=== PATIENT | female | born 1955 | race Caucasian/White ===

== ENCOUNTER 2018-06-29 10:22 | Inpatient (IN) ==
--- NOTE | 2018-06-29 10:50 | PROVIDER DOCUMENTATION ---
This chart was entered by Massiel Rand Scribe, acting as scribe for Varinder Dobbs MD. HPI-Abdominal Pain/GI Problem - General Chief Complaint: Abdominal Pain Stated Complaint: abd pain Time Seen by Provider: 06/29/18 10:29 Source: patient, EMS - History of Present Illness-ABD Nature of Presenting Problems: 62 y/o female presents to the ED with complaint of severe diarrhea, abdominal cramping and distension, and jaundice times three days. The patient gives a history of previous jaundice due to alcohol abuse but is poor historian. Patient states no alcohol times two days but normally drinks half a bottle of wine daily. PCP Dr. Joe Alvarez. Abdominal Pain Onset Location: reports: generalized abdomen Pain Radiation: reports: no radiation Quality of Pain: reports: cramping Onset/Duration: reports: 3 days ago Timing: reports: still present Exposure to sick contacts?: No Modifying Factors: improves with: nothing Associated Symptoms: reports: diarrhea, other (abdominal distension/pain, jaundice). denies: fever/chills, vomiting Rectal Bleeding: reports: none Rectal Pain: reports: none Emesis Description: reports: none Similar Symptoms Previously?: Yes Recently seen or treated by another doctor?: No Review of Systems - Adult - REVIEW OF SYSTEMS - ADULT Constitutional: denies: chills, fever, night sweats Eyes: reports: no symptoms reported Ears, Nose, Mouth & Throat: reports: no symptoms reported Cardiovascular: reports: no symptoms reported Respiratory: reports: no symptoms reported Gastrointestinal: reports: abdominal pain, diarrhea. denies: nausea, vomiting Genitourinary: reports: no symptoms reported Musculoskeletal: reports: no symptoms reported Integumentary: reports: no symptoms reported Neurological: reports: no symptoms reported Psychiatric: reports: alcohol/drug dependence. denies: depression, suicidal thoughts Endocrine: reports: no symptoms reported Hematologic/Lymphatic: reports: no symptoms reported Allergic/Immunologic: reports: no symptoms reported All Other Systems: Reviewed and Negative Past History - Adult - PAST MEDICAL HISTORY-ADULT Review of Records: reports: Old Records Reviewed, Nursing Assessment Review, Medications Reviewed - IMMUNIZATION STATUS Childhood Immunizations: See Nurse Assessment Flu Vaccine: See Nurse Assessment - SOCIAL HISTORY Substance Use: alcohol Alcohol Use Frequency: every day Physical Exam-General - PHYSICAL EXAM-ADULT Initial Vital Signs Reviewed: Yes - CONSTITUTIONAL General Appearance: alert. negative: appears well - EYES Eyes: PERRL/EOMI - HEAD, EARS, NOSE, MOUTH & THROAT HENMT: normocephalic/atraumatic - NECK Neck: full range of motion, supple - SKIN Integumentary: ecchymosis (left eye), jaundice - NEUROLOGIC Neurologic: grossly normal Progress - PLAN OF CARE/RESULTS Result Diagrams: 06/29/18 11:55 06/29/18 11:55 - ULTRASOUND (By Radiology) 1 US Study: Abdomen Impression: Abnormal (EXAM: US GB < RUQ (LIMITED) - 06/29/2018 HISTORY: JAUNDICE TECHNIQUE: Ultrasound gallbladder COMPARISON: None. FINDINGS: The liver contours are lobulated, which can be seen with chronic hepatocellular disease/cirrhosis. There is no focal liver lesion identified. Doppler image shows apparent hepatopedal flow in the portal vein. There is moderate ascites. The gallbladder peraza appear thickened, but this can be seen in the presence of ascites. Multiple small gallbladder polyps. There are no discrete shadowing or mobile gallstones identified. The technologist reports negative sonographic Lynn's sign. The common bile duct is normal caliber at 5 mm. The right kidney is unremarkable. The pancreas is largely obscured by bowel gas artifacts. IMPRESSION: Possible chronic hepatocellular disease/cirrhosis. Moderate ascites. Thickened gallbladder peraza, which can be seen in the presence of ascites. Apparent multiple small gallbladder polyps. No definite gallstones. Normal caliber common bile duct at 5 mm. Electronically signed by Chetan Villegas 06/29/2018 12:09 PM) - CONSULTS/PCP/HOSPITALIST Notification #1 *Consult/PCP/Hospitalist*: Dr. Hicks Time Discussed: 14:01 Reason/Comments: Ascites, jaundice, alcoholic cirrhosis Consult Disposition: Will see in ED Departure - Departure Date of Disposition Decision: 06/29/18 Time of Disposition Decision: 13:14 DIAGNOSIS: Alcoholic cirrhosis of liver with ascites Disposition: HOME 01 Certified Medical Emergency: Emergent Condition: Stable Additional Freetext Instructions: ED Follow Up Instructions: You have been treated by a care provider in the Emergency Department. These instructions are being provided to you so you can have an understanding of how to care for yourself upon discharge. Upon discharge from the Emergency D epartment, you are responsible for making arrangements for follow-up care by a physician of your choice. Take all prescribed medications as directed. Return to the Emergency Department immediately for any new or worsening symptoms. You may call the Physician Referral phone number at [phone] to obtain a list of Physicians who are taking new patients. Referrals and Follow-Ups: Leanna Alvarez MD [Primary Care Provider] - - Critical Care Note This patient required my direct & personal management of CC.: No Attestation - Physician/ JUICE Attestation Patient care was provided by Advanced Practice Provider:: No The physician spent face to face time with patient:: Yes Advanced Practice Provider documentation review:: Supervising physician onsite and consulted in the evaluation and care of this patient. The physician did have a face to face encounter with the patient. This chart was documented by the indicated scribe, (Massiel Rand, Tess) and accurately reflects the services I performed and decisions made by me, Varinder Dobbs MD, as attested by the provider's signature.
[2018-06-29 12:11] LABS: URINE SOURCE CLEAN CATCH
--- NOTE | 2018-06-29 12:11 | Diag Imaging Result Doc PS360 ---
EXAM: US GB < RUQ (LIMITED) - 06/29/2018 HISTORY: JAUNDICE TECHNIQUE: Ultrasound gallbladder COMPARISON: None. FINDINGS: The liver contours are lobulated, which can be seen with chronic hepatocellular disease/cirrhosis. There is no focal liver lesion identified. Doppler image shows apparent hepatopedal flow in the portal vein. There is moderate ascites. The gallbladder peraza appear thickened, but this can be seen in the presence of ascites. Multiple small gallbladder polyps. There are no discrete shadowing or mobile gallstones identified. The technologist reports negative sonographic Lynn's sign. The common bile duct is normal caliber at 5 mm. The right kidney is unremarkable. The pancreas is largely obscured by bowel gas artifacts. IMPRESSION: Possible chronic hepatocellular disease/cirrhosis. Moderate ascites. Thickened gallbladder peraza, which can be seen in the presence of ascites. Apparent multiple small gallbladder polyps. No definite gallstones. Normal caliber common bile duct at 5 mm. Electronically signed by Chetan Villegas 06/29/2018 12:09 PM
[2018-06-29 12:29] LABS: BILIRUBIN URINE MODERATE (NEGATIVE); BLOOD URINE TRACE (NEGATIVE); COLOR YELLOW; GLUCOSE URINE NEGATIVE (NEGATIVE); KETONE URINE TRACE mg/dL (NEGATIVE); LEUKOCYTES URINE SMALL (NEGATIVE); NITRITE URINE NEGATIVE (NEGATIVE); PH URINE 5.5; PROTEIN URINE TRACE mg/dL (NEGATIVE); SP GRAVITY URINE 1.017; TURBIDITY URINE HAZY (CLEAR); UROBILINOGEN URINE 2 mg/dL (NORMAL)
[2018-06-29 12:35] LABS: BASO# 0.04 X1000 (0.0-0.2); BASO% 0.4 % (0.0-0.8); EOS# 0.18 X1000 (0.0-0.7); EOS% 1.9 % (0.0-10.0); HEMOGLOBIN 9.1 g/dL (12.0-16.0); LYMPH# 1.25 X1000 (1.2-3.4); LYMPH% 13.4 % (20.5-51.1); MCH 34.3 PG (27-31); MCHC 32.5 g/dL (33-37); MCV 105.7 FL (81-99); MONO# 1.14 X1000 (0.11-0.59); MONO% 12.2 % (1.7-9.3); MPV 11.2 FL (7.4-10.4); NEUT# 6.73 X1000 (1.4-6.5); NEUT% 72.1 % (42.2-75.2); PLT 260 X1000 (130-400); RBC 2.65 XMIL (4.2-5.4); RDW 18.5 % (11.5-14.5); WBC 9.34 X1000 (4.8-10.8)
[2018-06-29 12:35] LABS: URINE BACTERIA 1+ /HPF; URINE RBC <10 /HPF (<10); URINE WBC <10 /HPF (<10)
[2018-06-29 12:45] LABS: ALB/GLOB RATIO 0.8; ALBUMIN 2.7 g/dL (3.5-5.0); CALCIUM 8.6 mg/dL (8.8-10.2); CREATININE 2.5 mg/dL (0.5-0.9); POTASSIUM 4.7 mmol/L (3.5-5.1); TOTAL BILIRUBIN 9.16 mg/dL (0.20-1.00); TOTAL PROTEIN 6.2 g/dL (6.3-8.3)
[2018-06-29 12:48] LABS: URINE CRYSTALS NONE SEEN; URINE SMALL ROUND CELLS TRANS PRESENT; URINE YEAST NONE SEEN
[2018-06-29 12:58] LABS: UR EPITHELIAL CELLS <10 /HPF (<10)
[2018-06-29] MEDS ORDERED: PHENERGAN IV PRN (14:19)
[2018-06-29] MEDS ORDERED: SODIUM CHLORIDE 0.9% INJ PRN (14:19)
[2018-06-29] MEDS ORDERED: SODIUM CHLORIDE 0.9% INJ ONE (14:19)
[2018-06-29] MEDS ORDERED: PHENERGAN IV ONE (14:19)
--- NOTE | 2018-06-29 15:22 | HISTORY AND PHYSICAL ---
CHIEF COMPLAINT: Abdominal swelling and pain. PRESENT ILLNESS: This is the first [facility] admission for this 62-year-old white female with abdominal pain, abdominal distention, jaundice, and nausea. According to the she has been drinking regularly, at least a half a bottle of wine daily until 2 days ago for the last 6 months. She had some abdominal swelling about a year ago and went to see Dr. Alvarez, who advised her to stop drinking and gave her some Lasix. She improved with time and had stopped for about 6 months. Her mother developed dementia and after being in rehab, her mother returned home with her. She began drinking again due to the stress. She told her that she could not handle the stress without alcohol. She would occasionally go get her alcohol, but he often time also would go get the alcohol to keep her from driving since she was often intoxicated. Laboratory in the emergency room revealed white blood count 9300, hematocrit 28, BUN 33, creatinine 2.5, sodium 132, total bilirubin 9.2, glucose 110, AST 123, ALT 37, alkaline phosphatase 474, ammonia 212, total protein 6.2, albumin 2.7, lipase 154. Urinalysis showed moderate bilirubin and a small amount of leukocytes, less than 10 per high-powered field. Upper abdominal ultrasound was done revealing gallbladder polyps and thickened gallbladder wall which could have been related to the ascites. Common bile duct was not dilated. There was evidence of hepatocellular disease on ultrasound. PRESENT MEDICATIONS: None. ALLERGIES: None known. REVIEW OF SYSTEMS: Alcohol usage as above. Stress contributing to her alcohol problem. SOCIAL HISTORY: She is and lives with her . Her mother now stays with their son who is assisting in her care. There is no history of smoking. PHYSICAL EXAMINATION: VITAL SIGNS: Temperature 98.6 degrees, heart rate 74, respirations 28, blood pressure 120/62, O2 saturation on room air 99%. GENERAL: A well-developed, well-nourished, jaundiced, white female with distended abdomen. HEENT: Pupils equal, round, and reactive to light. She wears glasses. There are icteric sclerae bilaterally. Pharynx benign. NECK: Supple with no mass or lymphadenopathy. HEART: Regular in rate and rhythm with no murmur, rub or gallop. LUNGS: Clear with no rales or rhonchi. ABDOMEN: Distended and tense with no definite mass. Bowel sounds are diminished. EXTREMITIES: No cyanosis, clubbing or edema. RECTAL AND GENITALIA: Deferred. IMPRESSION: Cirrhosis, alcoholic, with jaundice and ascites, malnutrition, elevated serum ammonia, gallbladder polyps, alcoholism. PLAN: Admit for control of nausea, hydration, GI consultation, and probable paracentesis. cc: Phill Hicks MD
[2018-06-29] MEDS ORDERED: DEMEROL IV PRN (15:49)
[2018-06-29] MEDS ORDERED: ROCEPHIN 1 GM in NS 50 ML IV SCH (17:00)
[2018-06-29] MEDS ORDERED: LASIX IV SCH (17:00)
--- NOTE | 2018-06-29 18:58 | Diag Imaging Result Doc PS360 ---
EXAM: CHEST-2 VIEWS - 06/29/2018 HISTORY: r/o pneumonia TECHNIQUE: Chest two views COMPARISON: None. FINDINGS: Heart size is normal. Inspiration is somewhat shallow. Lungs appear clear except for mild basilar subsegmental atelectasis. There is no consolidation, substantial pleural effusion, or pneumothorax identified. IMPRESSION: Somewhat shallow inspiration, with mild basilar atelectasis. No discrete pneumonia. Electronically signed by Chetan Villegas 06/29/2018 6:55 PM
[2018-06-29] MEDS: LIBRIUM PO SCH (20:27)
[2018-06-29] MEDS: ULTRAM PO PRN (20:27)
[2018-06-29] MEDS ORDERED: LACTULOSE PO SCH (21:00)
[2018-06-29 21:52] LABS: INR 1.42; PROTIME 18.4 Seconds (11.0-16.0)
[2018-06-29] MEDS: ALBUMIN 25% IV SCH (23:37)
[2018-06-30 07:45] LABS: ALB/GLOB RATIO 0.9; ALBUMIN 2.7 g/dL (3.5-5.0); CALCIUM 8.2 mg/dL (8.8-10.2); CREATININE 2.3 mg/dL (0.5-0.9); POTASSIUM 4.5 mmol/L (3.5-5.1); TOTAL BILIRUBIN 9.18 mg/dL (0.20-1.00); TOTAL PROTEIN 5.8 g/dL (6.3-8.3)
[2018-06-30] MEDS: LIBRIUM PO SCH ×3 (08:18→23:52)
[2018-06-30] MEDS: ULTRAM PO PRN ×3 (08:18→22:29)
[2018-06-30] MEDS: ALBUMIN 25% IV SCH ×4 (08:19→22:30)
[2018-06-30] MEDS ORDERED: ALDACTONE PO SCH (09:00)
--- NOTE | 2018-06-30 12:12 | PROGRESS NOTE ---
DATE: 06/30/2018 OBJECTIVE: Vital signs: Temperature 98 degrees, heart rate 70, respirations 16, blood pressure 100/62, O2 saturation 99% on room air. LABORATORY DATA: Sodium 134, potassium 4.5, BUN 37, creatinine 2.3, calcium 8.2, total bilirubin 9.2, AST 102, ALT 30, alkaline phosphatase 371, total protein 5.8, albumin 2.7. The patient continues to be weak with abdominal distention. Paracentesis is planned for tomorrow. She was placed on Librium in anticipation of DTs. She is calm at this time. Diet was increased by Dr. Coreas to healthy heart diet. cc: Phill Hicks MD
[2018-06-30] MEDS: ROCEPHIN 1 GM in NS 50 ML IV SCH (16:43)
--- NOTE | 2018-07-01 03:04 | GASTROENTEROLOGY CONSULTATION ---
DATE: 06/30/2018 REASON FOR CONSULTATION: Decompensated alcohol cirrhosis. HISTORY OF PRESENT ILLNESS: Ms. Jayla Roy is a 62-year-old woman with a past medical history significant for decompensated alcohol cirrhosis complicated by ascites, anemia, GERD, depression, and hypertension who presents with 4 days of severe upper and lower abdominal pain, cough with productive white phlegm, nonbloody nonbilious emesis. She admits to gaining about 30 pounds over the last 3 weeks, and over the last week has notice scleral icterus and jaundice. She denies any fevers, chills or sweats. She reports compliance with her home medications. No confusion, rectal bleeding, melena or hematemesis. She has also noticed some generalized weakness, decreased p.o. intake, and lightheadedness. No lower extremity edema. She has been drinking about a 0.5 L of wine daily over the last 20 years, her last drink was 4 days ago. PAST MEDICAL HISTORY: As per HPI. PAST SURGICAL HISTORY: She had a left upper extremity bone tumor removed, tubal ligation. FAMILY HISTORY: Both her father and sister have a history of colorectal cancer. No family history of liver disease. SOCIAL HISTORY: She drinks 0.5 L of wine daily, which she has done for the last 20 years. No smoking or drug use. ALLERGIES: No known allergies. MEDICATIONS: Furosemide, iron, vitamin C, pantoprazole, rifaximin, spironolactone, Carafate, citalopram, bisoprolol-hydrochlorothiazide combination. REVIEW OF SYSTEMS: As per HPI. She does report having some black formed stools in the setting of taking iron, dyspnea on exertion and pulmonary chest pain. The rest of the review of systems was negative other than what I mentioned in the HPI. PHYSICAL EXAMINATION: Vital Signs: Temperature 98 degrees, pulse 76, blood pressure 110/56, respiratory rate 25, O2 saturation 96% on room air. General: The patient is awake, alert and oriented, in no acute distress. HEENT: Sclerae are anicteric. Extraocular motor intact. Oropharynx with jaundice. She has small mouth oral ulcers. Neck: Supple. No JVD or lymphadenopathy. Cardiac: Regular rate and rhythm. No murmurs. Lungs: Clear to auscultation bilaterally. Shallow breathing. Abdomen: Distended, tense with ascites, diffuse tenderness to palpation, voluntary guarding. Extremities: No clubbing, cyanosis or edema. Skin: Scattered spider angiomata on her chest. Jaundice more well-perfused. Neurologic: Cranial nerves II-XII grossly intact. No asterixis. Alert and oriented x3. LABORATORY DATA: White count of 9.3, hemoglobin 9.1, platelet count 206,000. INR of 1.4. Sodium 132, potassium 4.7, chloride of 100, bicarbonate 15, BUN of 33, creatinine 2.5 from unknown baseline, total bilirubin of 9.1, AST of 123, ALT of 37, alkaline phosphatase of 474, ammonia of 212, total protein of 6.2, albumin of 2.7, lipase of 154, lactate of 1.4. UA shows moderate bilirubin, small leukocytes. Blood cultures x2 negative to date. Urine culture shows gram- negative rods. Abdominal ultrasound shows cirrhosis with moderate ascites, thickened gallbladder peraza which can be seen in the presence of ascites, apparent multiple small gallbladder polyps, no definite stones. Common bile duct measures 5 mm. Chest x-ray shows somewhat shallow inspiration with mild basilar atelectasis, no discrete pneumonia. ASSESSMENT AND PLAN: Ms. Jayla Roy is a 62-year-old woman who presents with worsening decompensated alcohol cirrhosis with ascites and alcoholic hepatitis, [*]is high; however, she is not a candidate for steroids at the time given her positive urinary tract infection with gram- negative rods. She is currently on antibiotics with ceftriaxone. She was given albumin challenge given her acute kidney injury. Her home diuretics are being held as well as lactulose and rifaximin given the absence of hepatic encephalopathy. No need to trend ammonia given poor correlation of symptoms. She will need a diagnostic and therapeutic paracentesis to be done by Radiology, this has been ordered. We will start her on Trental. Other notable findings on labs include macrocytic anemia, coagulopathy with international normalized ratio of 1.4, low bicarbonate. We will check iron studies, B12 and folate. She will need to be on alcohol withdrawal protocol, regular high-protein and high-calorie diet in the setting of severe protein calorie malnutrition with alcoholism. Continue to baby counselor her on alcohol cessation. She reports that she does drink as a coping mechanism because she cares for her mother who has dementia. We will follow with you. Please call with any questions or concerns. cc: Phill Hicks MD
[2018-07-01 03:26] LABS: ALB/GLOB RATIO 1.6; ALBUMIN 3.8 g/dL (3.5-5.0); CALCIUM 8.6 mg/dL (8.8-10.2); CREATININE 2.2 mg/dL (0.5-0.9); POTASSIUM 4.2 mmol/L (3.5-5.1); TOTAL BILIRUBIN 8.01 mg/dL (0.20-1.00); TOTAL PROTEIN 6.2 g/dL (6.3-8.3)
[2018-07-01 03:27] LABS: IRON SATURATION 13 %; TIBC 111 ug/dL; TOTAL IRON 14 ug/dL (49-151); UNBOUND IRON 97 ug/dL (112-346)
[2018-07-01] MEDS ORDERED: M.V.I.-12 10 ML, FOLIC ACID 1 MG, MAGNESIUM SULFATE 1 GM, THIAMINE 100 MG in NS 1,000 ML IV SCH (10:00)
[2018-07-01] MEDS: ULTRAM PO PRN ×2 (10:08→15:41)
[2018-07-01] MEDS: TRENTAL PO SCH ×3 (10:09→21:43)
[2018-07-01] MEDS: LIBRIUM PO SCH ×3 (10:09→21:56)
[2018-07-01] MEDS: ALBUMIN 25% IV SCH ×3 (10:10→17:47)
--- NOTE | 2018-07-01 10:12 | Diag Imaging Result Doc PS360 ---
US ABD PARACENTESIS W S/I - 07/01/2018 INDICATION: diagnostic and therapeutic COMPARISON: None FINDINGS: The risks and benefits of the procedure were discussed with the patient. All questions were answered. Written and verbal consent was obtained. Ultrasound scanning demonstrated ascites. Overlying skin was prepped and draped in sterile fashion. Anesthesia was achieved with injection of 10 cc 1% lidocaine. The paracentesis catheter was advanced until the return of ascites fluid. 4.4 L was aspirated. The catheter was withdrawn intact. The patient reported no symptoms from the procedure. IMPRESSION: Successful and uncomplicated ultrasound-guided paracentesis. Electronically signed by Shaheen Doss 07/01/2018 10:10 AM
[2018-07-01] MEDS: CENTRUM SILVER PO SCH (10:15)
[2018-07-01] MEDS: SODIUM CHLORIDE 0.9% INJ SCH (10:16)
[2018-07-01] MEDS: PROTONIX IV SCH ×2 (10:16→21:43)
[2018-07-01] MEDS: VITAMIN K 10 MG in NS 50 ML IV SCH (11:06)
[2018-07-01 11:10] LABS: ALBUMIN BODY FLUID 0.8 g/dL; AMYLASE BODY FLUID 20 U/L; TOTAL PROT BODY FLUID 1.3 g/dL
[2018-07-01 11:49] LABS: BODY FLUID SOURCE PERITONEAL FLUID; WBC BF 35 /cumm
[2018-07-01 11:57] LABS: MONOS 69 %; POLYS 31 %
[2018-07-01 13:36] LABS: HEPATITIS PROFILE ACUTE SEE COMMENTS
--- NOTE | 2018-07-01 13:58 | GASTROENTEROLOGY PROGRESS NOTE ---
DATE: 07/01/2018 SUBJECTIVE: Resting in bed. She is undergoing paracentesis in the ultrasound department patient denies any fevers, rigors, chills. She does complain of some soreness in the abdomen. No guarding. No rebound. She denies any fevers, rigors, chills, any nausea, vomiting, vomiting blood. She is currently undergoing paracentesis.Vital signs: Temperature are 97.9 degrees, pulse of 76, respiratory 20, blood pressure 118/60 saturating 97% on room air. Body weight 141 pounds. 12.8 ounces. BMI 25 kg. General Appearance: Moderately nourished, lying in bed, in no acute distress. HEENT: Pale conjunctivae. Icteric sclerae. Neck: Supple. Abdomen: Softer now. She is undergoing paracentesis no guarding or rebound. Extremities: No cyanosis, clubbing. Neurologic: She is awake, alert, oriented x3. LABS: Hemoglobin and hematocrit is 9.1 and 28, white count of 9.3, platelet count of 260,000 INR 1.42, PT of 18.4 PTT of 33.7. Sodium 130, potassium 4.2, chloride 97, bicarb 30, anion gap 16, BUN of 35, creatinine 2.2 ,glucose of 94, calcium is 8.6. Iron studies show iron saturation of 13%. Ferritin of 47, total bilirubin is 8, AST 107, ALT 23, alkaline phosphatase is 299. Total protein 6.2, albumin of 3.8, B12 more than 2000, folate of 20.8, lipase of 154 lactate 1.4. Urinalysis showing trace ketones and trace blood, moderate bilirubin and trace protein. Blood culture x2 negative at 48 hours. Urine culture showing gram-negative rods. IMPRESSION AND PLAN: 1. Decompensated alcoholic cirrhosis. We will continue with conservative management. The patient is again counseled to quit alcohol completely. We will continue to follow the liver enzymes and PT/INR and CBC. She will continue to avoid hepatotoxic drugs. 2. Ascites. She has been undergoing paracentesis. We will check on the fluid studies. 3. Alcoholic hepatitis. She is not a candidate for steroids as the patient has a positive urinary tract infection with gram-negative rods. 4. Urinary tract infection. She is on antibiotics with ceftriaxone. 5. Renal insufficiency. Continue to watch for now. She is getting albumin per the primary care team. 6. History of hepatic encephalopathy. We will restart the Xifaxan today. 7. Anemia, continue to watch for now. Transfuse as needed. 8. Coagulopathy/ We will give her a dose of vitamin K. 9. Alcoholism. Watch for withdrawal. She will continue on Librium, multivitamin. We will start her on banana bag as well. 10. PPIs. 11. We will continue on pentoxifylline 4 mg p.o. t.i.d. 12. The above plans were discussed with the patient and all questions answered. Please call if you have any questions. cc: MD Phill Acuña MD
[2018-07-01] MEDS: ROCEPHIN 1 GM in NS 50 ML IV SCH (15:22)
[2018-07-01] MEDS: ZOFRAN IV PRN (17:54)
--- NOTE | 2018-07-01 20:56 | PROGRESS NOTE ---
DATE: 07/01/2018 SUBJECT: A 62-year-old white female admitted to the hospital over the weekend with a history of alcohol use developing cirrhosis, ascites. Patient had multiple detox programs failed, she keeps on drinking. is at bedside. Events noted. Appreciate GI consult and patient is well known to Dr. Almonte. REVIEW OF SYSTEMS: Patient is docile, calm. PAST MEDICAL HISTORY: Reviewed. PAST SURGICAL HISTORY: Reviewed. MEDICINES: Reviewed. ALLERGIES: Sulfamide. EXAM: Temperature is 98 degrees, pulse is 82, blood pressure 112/58, 96% on room air.HEENT: Pale, jaundiced. Neck: Supple. Chest: Clear. Heart: Sounds are regular. Belly: Soft. Ascites noted. No signs of peritonitis. No neurological deficits or asterixis noted. INVESTIGATIONS: CBC, white cell count 9.3, hematocrit 28, MCV 105, platelet count 260,000. PT 14 INR 1.42. SMA 7 sodium 130, potassium 4.2, chloride 97, BUN 35, creatinine 2.2, calcium 8.6 and total bilirubin 8.0 and alkaline phosphate, LFTs were high, B12, folic acid normal. Urinalysis positive for infection. Hepatitis panel is negative for hepatitis B and hepatitis C and fluid white cell count 35, fluid albumin 1.3, serum albumin 3.8 and SAAG is more than 3, total protein is less than 2.5. Microbiology cultures, blood cultures are negative. Urine cultures Enterobacter. Paracentesis of ultrasound 4.4 L fluid was aspirated. Ultrasound of the abdomen cirrhosis with moderate ascites. Chest x-ray, shallow inspiration, no acute disease. ASSESSMENT AND PLAN: 1. Alcohol cirrhosis with ascites, portal hypertension decompensated with jaundice, SAAG is 3, protein level less than 2.5. No subacute bacterial peritonitis noted. 2. Urinary tract infection with Enterobacter, intravenous ceftriaxone. 3. Renal failure possibly hepatorenal syndrome. 4. Continue GI prophylaxis with IV Protonix. Multivitamins as directed and alcohol withdrawals impending DTs on Librium 25 t.i.d. and continue on Xifaxan for the ammonia encephalopathy. 5. Coagulopathy on intravenous vitamin K and tramadol for p.r.n. pain. Discussed the plan of care with at bedside. 6. Patient has started on pentoxifylline and probably poor prognosis if she continues to drink. Continue to detox . LEVEL OF DOCUMENTATION: 35 minutes. cc: MD Phill Montoya MD MTDD
[2018-07-01] MEDS: XIFAXAN PO SCH (21:56)
[2018-07-02] MEDS: M.V.I.-12 10 ML, FOLIC ACID 1 MG, MAGNESIUM SULFATE 1 GM, THIAMINE 100 MG in NS 1,000 ML IV SCH ×2 (03:01→22:22)
[2018-07-02 07:28] LABS: BASO# 0.06 X1000 (0.0-0.2); BASO% 0.8 % (0.0-0.8); EOS# 0.09 X1000 (0.0-0.7); EOS% 1.1 % (0.0-10.0); HEMATOCRIT 24.5 % (37.0-47.0); HEMOGLOBIN 7.8 g/dL (12.0-16.0); IMM GRAN# 0.02 X1000 (0.0-0.04); IMM GRAN% 0.3 % (0.0-0.5); LYMPH# 1.02 X1000 (1.2-3.4); LYMPH% 12.9 % (20.5-51.1); MCH 33.3 PG (27-31); MCHC 31.8 g/dL (33-37); MCV 104.7 FL (81-99); MONO# 1.02 X1000 (0.11-0.59); MONO% 12.9 % (1.7-9.3); MPV 10.2 FL (7.4-10.4); NEUT# 5.71 X1000 (1.4-6.5); PLT 187 X1000 (130-400); RBC 2.34 XMIL (4.2-5.4); RDW 17.6 % (11.5-14.5); WBC 7.92 X1000 (4.8-10.8)
[2018-07-02 07:29] LABS: INR 1.68
[2018-07-02 07:51] LABS: ALB/GLOB RATIO 1.9; ALBUMIN 3.8 g/dL (3.5-5.0); CALCIUM 8.4 mg/dL (8.8-10.2); POTASSIUM 4.3 mmol/L (3.5-5.1); TOTAL BILIRUBIN 7.15 mg/dL (0.20-1.00); TOTAL PROTEIN 5.8 g/dL (6.3-8.3)
[2018-07-02] MEDS: VITAMIN K 10 MG in NS 50 ML IV SCH (08:53)
[2018-07-02] MEDS: CENTRUM SILVER PO SCH (08:53)
[2018-07-02] MEDS: TRENTAL PO SCH ×3 (08:53→22:23)
[2018-07-02] MEDS: LIBRIUM PO SCH ×2 (08:53→14:40)
[2018-07-02] MEDS: PROTONIX IV SCH ×2 (08:53→22:23)
[2018-07-02] MEDS: SODIUM CHLORIDE 0.9% INJ SCH ×2 (08:53→22:23)
[2018-07-02] MEDS: XIFAXAN PO SCH ×2 (08:53→22:23)
[2018-07-02] MEDS: ROCEPHIN 1 GM in NS 50 ML IV SCH (14:40)
[2018-07-02] MEDS: NS 250 ML IV SCH (16:39)
--- NOTE | 2018-07-02 21:16 | PROGRESS NOTE ---
DATE: 07/02/2018 SUBJECT: The patient is not eating well and slightly sedated, is at bedside. Appreciated GI consult and interval history was reviewed. OBJECTIVE: Temperature is 98 degrees, pulse 83, blood pressure 103/37. Slightly pale, jaundiced.Chest: Is clear. Heart: Sounds are regular. Belly: Is soft. Decreased distention. No signs of peritonitis. No edema. INVESTIGATIONS: CBC. White cell count 7.9, hematocrit 24, platelets 187,000. PT 21, INR 1.68. SMA 7 sodium 136, potassium 4.3, BUN 30, creatinine 2.0, calcium 8.4. LFTs were coming down. ASSESSMENT AND PLAN: 1. Cirrhosis of liver due to alcohol with portal hypertension and ascites. No subacute bacterial peritonitis noted. 2. Anemia and chronic kidney failure and will give a transfusion of 1 unit of packed RBC and follow up on daily labs. 3. Coagulopathy. Continue vitamin K. 4. To prevent ammonia encephalopathy, continue on Xifaxan. 5. Delirium tremens prophylaxis with Librium and continue on IV Protonix. 6. Urinary tract infection on intravenous ceftriaxone and will continue to monitor with present regimen. LEVEL OF DOCUMENTATION: 25 minutes. cc: MD Phill Montoya MD MTDD
[2018-07-03] MEDS: LIBRIUM PO SCH ×4 (01:43→16:54)
[2018-07-03] MEDS: NS 250 ML IV SCH (07:11)
[2018-07-03 07:50] LABS: BASO# 0.09 X1000 (0.0-0.2); BASO% 1.1 % (0.0-0.8); EOS# 0.19 X1000 (0.0-0.7); EOS% 2.3 % (0.0-10.0); HEMATOCRIT 31.3 % (37.0-47.0); HEMOGLOBIN 10.1 g/dL (12.0-16.0); IMM GRAN# 0.03 X1000 (0.0-0.04); IMM GRAN% 0.4 % (0.0-0.5); LYMPH# 0.87 X1000 (1.2-3.4); LYMPH% 10.5 % (20.5-51.1); MCH 32.3 PG (27-31); MCHC 32.3 g/dL (33-37); MONO# 0.86 X1000 (0.11-0.59); MONO% 10.4 % (1.7-9.3); MPV 10.8 FL (7.4-10.4); NEUT# 6.26 X1000 (1.4-6.5); NEUT% 75.3 % (42.2-75.2); PLT 168 X1000 (130-400); RBC 3.13 XMIL (4.2-5.4); RDW 21.9 % (11.5-14.5)
[2018-07-03 09:16] LABS: ALB/GLOB RATIO 1.5; ALBUMIN 3.6 g/dL (3.5-5.0); CALCIUM 8.7 mg/dL (8.8-10.2); CREATININE 1.8 mg/dL (0.5-0.9); POTASSIUM 4.3 mmol/L (3.5-5.1); TOTAL BILIRUBIN 7.55 mg/dL (0.20-1.00)
[2018-07-03] MEDS: PROTONIX IV SCH ×2 (09:27→21:54)
[2018-07-03] MEDS: XIFAXAN PO SCH ×2 (09:28→21:54)
[2018-07-03] MEDS: LACTULOSE PO SCH ×2 (09:28→21:54)
[2018-07-03] MEDS: CENTRUM SILVER PO SCH (09:28)
[2018-07-03] MEDS: TRENTAL PO SCH ×3 (09:28→21:55)
[2018-07-03] MEDS: SODIUM CHLORIDE 0.9% INJ SCH ×2 (09:28→21:54)
[2018-07-03] MEDS: ICAR-C PO SCH (09:28)
[2018-07-03] MEDS: VITAMIN K 10 MG in NS 50 ML IV SCH (09:29)
--- NOTE | 2018-07-03 10:24 | PROVIDER PROGRESS NOTE ---
Progress Note SUBJECTIVE: Confused overnight. No N/V/F, CP, SOB, abdominal pain, rectal bleeding, melena. at bedside OBJECTIVE Last Vital Signs Temp 97.5 F L 07/03/18 07:41 Pulse 79 07/03/18 07:41 Resp 16 07/03/18 07:41 BP 127/61 07/03/18 07:41 Pulse Ox 93 L 07/03/18 07:41 Height 5 ft 2 in Weight 132 lb 3 oz LABS: General: awake, NAD, confused HEENT: Sclerae are anicteric. Extraocular motor intact. MMM. Neck: Supple. No JVD or lymphadenopathy. Cardiac: Regular rate and rhythm. No murmurs. Lungs: Clear to auscultation bilaterally. No wheezing. Abdomen: distended, NT, ascites present, BS present. Extremities: No clubbing, cyanosis or edema. Skin: Scattered spider angiomata on her chest. Jaundice, WWP Neurologic: Cranial nerves II-XII grossly intact. Moving all extremities. Asterixis present. Alert and oriented to self and year only. 07/03/18 07/03/18 07:05 07:05 WBC 8.30 Hgb 10.1 L D MCV 100.0 H Plt Count 168 Sodium 139 Potassium 4.3 Chloride 108 H Carbon Dioxide 15 L BUN 26 H Creatinine 1.8 H Glucose 121 H Total Bilirubin 7.55 H AST 77 H ALT 21 Alkaline Phosphatase 288 H Total Protein 6.0 L UC on admission with Enterbacter cloacoe A/P: Ms. Jayla Roy is a 62-year-old woman who presents with worsening decompensated alcohol cirrhosis with ascites and alcoholic hepatitis, discriminant function is high; however, she is not a candidate for steroids at the time given UTI. She is currently on antibiotics with ceftriaxone. SCAR improved with albumin; therefore no HRS. LFTs improving. She has worsening hepatic encephalopathy. On rifixamin, started on lactulose today. #Decompensated ETOH cirrhosis - Ascites: s/p LVP with removal of 4.4L on 07/01, holding diuretics in setting of SCAR; low Na diet as tolerated - EV: patient had EGD without varices within the last year - PSE: present; on rifaximin; continue 30mL lactulose BID, titrated for 3-4 BMs daily, hold next dose for >4 BMs - HCC: imaging negative for hepatoma, repeat US every 6 months - OLT: not a candidate given recent ETOH use #Alcoholic hepatitis: on trental TID, continue for total of 28 days, will need high protein calorie diet when more alert, continue thiamine, folate, MVI, treat if has signs of alcohol w/d #UTI: on CTX; will recheck UCx #Anemia: macrocytic: s/p 1 unit pRBC yesterday; overcorrected to 10.1 today; B12/folate WNL; borderline RYDER; on iron therapy - continue PPI; transfuse as needed to maintain hgb 7-8; DO NOT OVERTRANSFUSE as this could precipitate variceal bleed #Severe protein calorie malnutrition: nutrition following; apprec recs #SCAR: improving; renally dose meds; no HRS #Low bicarbonate: question 2/2 to renal failure vs GI losses; lactate WNL #Coagulopathy: 2/2 to cirrhosis; s/p vitamin K IV without improvement Findings and plans discussed with patient's family. Will follow with you.
[2018-07-03] MEDS: ROCEPHIN 1 GM in NS 50 ML IV SCH (15:23)
--- NOTE | 2018-07-03 20:49 | PROGRESS NOTE ---
DATE: 07/03/2018 SUBJECTIVE: The patient did receive 1 unit of packed RBCs, receiving banana bag. The patient appears to be calm, docile. No signs of delirium or withdrawals from alcohol noted. Abdomen is distended. Still jaundiced, not eating well. EXAMINATION: Vital Signs: Temperature 97.3, heart rate is 109, blood pressure 126/49. Jaundiced, pale. Chest: Clear. Heart: Sounds are regular. Abdomen: Belly is soft. Ascites noted. No peripheral edema. LABS: CBC: White cell count 8.3, hematocrit 31, MCV 100, platelet 168,000. Sodium 139, potassium 4.3, chloride 108, BUN 26, creatinine 1.8, bilirubin 7.5. LFTs were coming down. ASSESSMENT AND PLAN: 1. Alcohol cirrhosis with ascites. Watch the trend of the LFTs. 2. Portal hypertension and probably needs nadolol at some point when she gets tachycardic. 3. Anemia. We will follow up on Hemoccult stools. Status post 1 unit of packed RBCs. 4. Watch for impending DTs. Continue on Librium. Will also initiate at some point naltrexone down the line. 5. GI prophylaxis with IV Protonix. 6. Coagulopathy, on vitamin K daily. 7. Ammonia encephalopathy, on Zyvox and started on lactulose. 8. UTI with enterococci on IV ceftriaxone. 9. Kidney failure due to hepatorenal syndrome, stable. Continue to monitor on a daily basis, will closely monitor. LEVEL OF DOCUMENTATION: 35 minutes. cc: MD Phill Montoya MD
[2018-07-03] MEDS: M.V.I.-12 10 ML, FOLIC ACID 1 MG, MAGNESIUM SULFATE 1 GM, THIAMINE 100 MG in NS 1,000 ML IV SCH (21:55)
[2018-07-03] MEDS: ULTRAM PO PRN (21:59)
[2018-07-04] MEDS: ULTRAM PO PRN ×2 (04:37→21:47)
[2018-07-04 05:10] LABS: ALLEN TEST YES; BE -7.9 mmoll (-3.0-3.0); BLOOD TYPE ARTERIAL; HCO3-(ACT) 18.7 mmoll (20.0-26.0); METHB 0.5 % (0.0-1.5); O2(CT) 13.9 mL/dL (15.0-23.0); O2HB 95.5 % (95.0-99.0); PCO2(98.6) 27 mmHg (35-45); PO2(98.6) 78 mmHg (60-100); SAMPLE BLOOD; SAO2 98.6 % (95.0-100.0); THB 10.3 g/dL (11.5-17.4); pH(98.6) 7.38 (7.35-7.45)
[2018-07-04 05:11] LABS: MODALITY ROOM AIR
[2018-07-04 07:55] LABS: BASO# 0.14 X1000 (0.0-0.2); BASO% 1.5 % (0.0-0.8); EOS# 0.29 X1000 (0.0-0.7); EOS% 3.1 % (0.0-10.0); HEMATOCRIT 28.5 % (37.0-47.0); HEMOGLOBIN 9.2 g/dL (12.0-16.0); LYMPH# 1.03 X1000 (1.2-3.4); LYMPH% 11.1 % (20.5-51.1); MCH 31.6 PG (27-31); MCHC 32.3 g/dL (33-37); MCV 97.9 FL (81-99); MONO# 0.87 X1000 (0.11-0.59); MONO% 9.4 % (1.7-9.3); MPV 10.2 FL (7.4-10.4); NEUT# 6.97 X1000 (1.4-6.5); NEUT% 74.9 % (42.2-75.2); PLT 177 X1000 (130-400); RBC 2.91 XMIL (4.2-5.4); RDW 21.5 % (11.5-14.5)
[2018-07-04 07:56] LABS: INR 1.43; PROTIME 18.6 Seconds (11.0-16.0)
[2018-07-04 08:32] LABS: ALB/GLOB RATIO 1.5; ALBUMIN 3.4 g/dL (3.5-5.0); CALCIUM 8.4 mg/dL (8.8-10.2); CREATININE 1.7 mg/dL (0.5-0.9); POTASSIUM 3.9 mmol/L (3.5-5.1); TOTAL BILIRUBIN 7.63 mg/dL (0.20-1.00); TOTAL PROTEIN 5.6 g/dL (6.3-8.3)
[2018-07-04] MEDS: LACTULOSE PO SCH ×2 (10:15→21:30)
[2018-07-04] MEDS: TRENTAL PO SCH ×3 (10:16→21:30)
[2018-07-04] MEDS: XIFAXAN PO SCH ×2 (10:16→21:30)
[2018-07-04] MEDS: PROTONIX IV SCH ×2 (10:16→21:30)
[2018-07-04] MEDS: CENTRUM SILVER PO SCH (10:16)
[2018-07-04] MEDS: ICAR-C PO SCH (10:16)
[2018-07-04] MEDS: SODIUM CHLORIDE 0.9% INJ SCH ×2 (10:17→21:30)
[2018-07-04] MEDS: LIBRIUM PO SCH ×3 (10:18→17:16)
--- NOTE | 2018-07-04 11:56 | GASTROENTEROLOGY PROGRESS NOTE ---
DATE: 07/04/2018 SUBJECTIVE: Resting in bed. She denies any new complaints. Denies any fevers, rigors, chills. She denies any no nausea or vomiting. She is moving her bowels. OBJECTIVE: Vital signs: Temperature 97.5, pulse rate of 87, respiratory rate 18, blood pressure 113/42. Saturating 100% on room air. Weight: Body weight of 132 pounds, BMI 24.1 kg/m2. General Appearance: The patient is thinly built, lying in bed, in no acute distress. HEENT: Pale conjunctivae. Icteric sclerae. Neck: Supple. Abdomen: Protuberant. Positive ascites. No guarding or rebound. Extremities: No cyanosis, clubbing. Neurologic: Alert, awake, and answers questions. DIAGNOSTIC STUDIES: Hemoglobin is 9.2, hematocrit 28.5, white count of 9.3, platelet count of 177,000. INR 1.03, PT of 18.6. ABG showing 7.38, pCO2 of 27, PO2 of 78; this is on room air. Sodium 139, potassium 3.9, chloride 109, bicarbonate 15, BUN of 22, creatinine 1.7, glucose of 101, calcium is 8.4, total bilirubin 7.63, AST 72, ALT 21, alkaline phosphatase 290, total protein 5.6, albumin of 3.4, ammonia of 73. Ascitic fluid studies show white cells 35, albumin of 0.8. Her SAAG more than 1.1, confirming portal hypertension. Hepatitis panel is nonreactive. IMPRESSION AND PLAN: 1. Decompensated alcoholic cirrhosis. We will continue to follow liver enzymes. 2. Alcohol abuse. Counseled to quit alcohol completely. 3. Alcoholic hepatitis. We will continue on pentoxifylline t.i.d., for a total of 28 days. 4. She will continue on thiamine, folate, and multivitamin. 5. Watch for alcohol withdrawal. 6. Urinary tract infection (UTI). To be managed per primary team. 7. Ascites status post large-volume paracentesis on 07/01/2018. 8. Hepatic encephalopathy. She is on rifaximin and lactulose 30 mL b.i.d. Hold for more than 3 to 4 bowel movements in 24 hours. 9. Protein-calorie malnutrition. Encourage oral intake. 10. Anemia. Continue to watch for now and transfuse if hematocrit is less than 23%. 11. Coagulopathy. She is on vitamin K, slowly improving. 12. Acute kidney injury. Aware. 13. Above plan of care was discussed with the patient and family at bedside, and all questions were answered. Please call us with any further questions. cc: MD Phill Acuña MD Jagan Reddy, MD MTDD
[2018-07-04] MEDS: ROCEPHIN 1 GM in NS 50 ML IV SCH (15:01)
[2018-07-04] MEDS: M.V.I.-12 10 ML, FOLIC ACID 1 MG, MAGNESIUM SULFATE 1 GM, THIAMINE 100 MG in NS 1,000 ML IV SCH (21:25)
[2018-07-04 21:46] LABS: URINE SOURCE CATH
--- NOTE | 2018-07-04 21:46 | PROGRESS NOTE ---
DATE: 07/04/2018 SUBJECTIVE: The patient is lethargic, docile, bedridden. Not able to use the bathroom. EXAM: Vital Signs: Temp is 98.5, pulse is 103, blood pressure is 113/37. HEENT Exam: Still jaundiced, pale. Chest: Clear. Heart: Sounds are regular. Abdomen: Belly is soft. Ascites with caput medusa. Portal hypertension signs present. No peripheral edema. No asterixis noted. INVESTIGATIONS: CBC: White cell count 9.3, hematocrit 28.5, platelets 177. PT 18.6. INR 1.43. ABG: pH is 7.38, pCO2 of 27, pO2 of 78 on room air. SMA-7: Sodium 139, potassium 3.9, BUN 22, creatinine 1.7. LFTs were coming down. ASSESSMENT AND PLAN: 1. Alcohol cirrhosis with portal hypertension and ascites. Slowly improving. 2. Coagulopathy, vitamin K. INR is 1.4. 3. Banana bag as directed. 4. Acute kidney injury is improving. 5. Lobato catheter was placed. 6. Urinary tract infection due to enterococci on IV ceftriaxone. 7. Ammonia encephalopathy. Continue on lactulose and Xifaxan. Continue on IV Protonix 8. Impending delirium tremens on Librium. Patient was replaced with thiamine, folic acid by Dr. Almonte. Continue to monitor her progress over the weekend. 9. Will discuss about the plan of care on Sunday. LEVEL OF DOCUMENTATION: 25 minutes. cc: MD Phill Montoya MD MTDD
[2018-07-04] MEDS: ZOFRAN IV PRN (21:48)
[2018-07-04 22:09] LABS: BILIRUBIN URINE SMALL (NEGATIVE); BLOOD URINE NEGATIVE (NEGATIVE); COLOR YELLOW; GLUCOSE URINE NEGATIVE (NEGATIVE); KETONE URINE TRACE mg/dL (NEGATIVE); LEUKOCYTES URINE NEGATIVE (NEGATIVE); NITRITE URINE NEGATIVE (NEGATIVE); PH URINE 5.5; PROTEIN URINE TRACE mg/dL (NEGATIVE); SP GRAVITY URINE 1.019; TURBIDITY URINE CLEAR (CLEAR); UR EPITHELIAL CELLS <10 /HPF (<10); URINE BACTERIA NEGATIVE /HPF; URINE RBC <10 /HPF (<10); URINE WBC <10 /HPF (<10); UROBILINOGEN URINE NORMAL (NORMAL)
[2018-07-05 07:53] LABS: BASO# 0.12 X1000 (0.0-0.2); BASO% 1.2 % (0.0-0.8); EOS% 1.9 % (0.0-10.0); HEMATOCRIT 29.6 % (37.0-47.0); HEMOGLOBIN 9.5 g/dL (12.0-16.0); IMM GRAN# 0.03 X1000 (0.0-0.04); IMM GRAN% 0.3 % (0.0-0.5); LYMPH% 13.5 % (20.5-51.1); MCH 31.9 PG (27-31); MCHC 32.1 g/dL (33-37); MCV 99.3 FL (81-99); MONO# 1.04 X1000 (0.11-0.59); MPV 10.6 FL (7.4-10.4); NEUT# 7.59 X1000 (1.4-6.5); NEUT% 73.1 % (42.2-75.2); PLT 199 X1000 (130-400); RBC 2.98 XMIL (4.2-5.4); RDW 21.5 % (11.5-14.5); WBC 10.38 X1000 (4.8-10.8)
[2018-07-05] MEDS: PROTONIX IV SCH ×2 (08:51→20:15)
[2018-07-05] MEDS: TRENTAL PO SCH ×3 (08:51→20:15)
[2018-07-05] MEDS: CENTRUM SILVER PO SCH (08:51)
[2018-07-05] MEDS: ULTRAM PO PRN ×2 (08:51→20:26)
[2018-07-05] MEDS: LACTULOSE PO SCH ×2 (08:51→20:15)
[2018-07-05] MEDS: LIBRIUM PO SCH ×3 (08:51→17:05)
[2018-07-05] MEDS: XIFAXAN PO SCH ×2 (08:51→20:15)
[2018-07-05] MEDS: ICAR-C PO SCH (08:51)
--- NOTE | 2018-07-05 14:40 | Diag Imaging Result Doc PS360 ---
EXAM: US ABD PARACENTESIS W S/I 07/05/2018 HISTORY: liver dx TECHNIQUE: Ultrasound-guided paracentesis COMMENT: The risks and benefits of the procedure were discussed with the patient and her and they agreed to the procedure. Following sterile preparation of the skin and administration of 1% lidocaine to the skin and deeper soft tissues in the right lower quadrant, the paracentesis catheter was placed and subsequently 2.65 L of yellow fairly clear fluid was removed. There are no immediate complications. IMPRESSION: Successful ultrasound-guided paracentesis. Electronically signed by James Miller 07/05/2018 2:38 PM
[2018-07-05] MEDS: ROCEPHIN 1 GM in NS 50 ML IV SCH (15:32)
--- NOTE | 2018-07-05 19:54 | PROVIDER PROGRESS NOTE ---
Progress Note SUBJECTIVE: No acute overnight events. No fever or vomiting. Patient reports increased SOB and abdominal distension. Multiple bowel movements with lactulose administration. OBJECTIVE: Last Vital Signs Temp 97.6 F 07/05/18 15:57 Pulse 101 H 07/05/18 15:57 Resp 21 07/05/18 15:57 BP 117/54 07/05/18 15:57 Pulse Ox 98 07/05/18 15:57 Height 5 ft 2 in Weight 131 lb 9 oz General: awake, NAD, confused HEENT: Icteric. Extraocular motor intact. MMM. Neck: Supple. No JVD or lymphadenopathy. Cardiac: Tachycardic. No murmurs. Lungs: Increased WOB, Clear to auscultation bilaterally. No wheezing. Abdomen: distended, tense ascites, mild TTP throughout, BS present Extremities: No clubbing, cyanosis or edema. Skin: Scattered spider angiomata on her chest. Jaundice, WWP Neurologic: Cranial nerves II-XII grossly intact. Moving all extremities. Asterixis improved; Alert and oriented to self and year only. 07/04/18 07/05/18 07:20 06:45 WBC 10.38 Hgb 9.5 L Plt Count 199 INR 1.43 EXAM: US ABD PARACENTESIS W S/I 07/05/2018 HISTORY: liver dx TECHNIQUE: Ultrasound-guided paracentesis COMMENT: The risks and benefits of the procedure were discussed with the patient and her and they agreed to the procedure. Following sterile preparation of the skin and administration of 1% lidocaine to the skin and deeper soft tissues in the right lower quadrant, the paracentesis catheter was placed and subsequently 2.65 L of yellow fairly clear fluid was removed. There are no immediate complications. IMPRESSION: Successful ultrasound-guided paracentesis. A/P: Ms. Jayla Roy is a 62-year-old woman who presents with worsening decompensated alcohol cirrhosis with ascites and alcoholic hepatitis. She is having worsening symptomatic ascites. #Decompensated ETOH cirrhosis: CP-C - Ascites: s/p LVP with removal of 4.4L on 07/01, s/p LVP with 2.65L removed today; holding diuretics in setting of SCAR; will consider starting low dose diuretics this weekend - EV: patient had EGD without varices within the last year - PSE: present; on rifaximin; continue 30mL lactulose BID, titrated for 3-4 BMs daily, hold next dose for >4 BMs - HCC: imaging negative for hepatoma, repeat US every 6 months - OLT: not a candidate given recent ETOH use #Alcoholic hepatitis: on trental TID, continue for total of 28 days; continue thiamine, folate, MVI #UTI: Enterbacter cloacoe; s/p 6 days of CTX; will stop abx tomorrow #Anemia: hgb stable; no overt bleeding on iron therapy; continue PPI #Severe protein calorie malnutrition: nutrition following; apprec recs #SCAR: improving; renally dose meds #Coagulopathy: 2/2 to cirrhosis Findings and plans discussed with patient's family. Will follow with you.
[2018-07-05] MEDS: M.V.I.-12 10 ML, FOLIC ACID 1 MG, MAGNESIUM SULFATE 1 GM, THIAMINE 100 MG in NS 1,000 ML IV SCH (20:15)
[2018-07-05] MEDS: SODIUM CHLORIDE 0.9% INJ SCH (20:16)
--- NOTE | 2018-07-05 20:18 | PROGRESS NOTE ---
DATE: 07/05/2018 SUBJECTIVE: The patient had some trouble of peeing last night and trouble of going to the bathroom. She seems to be more combative, restless. OBJECTIVE: On exam, temperature is 97 degrees, she is slightly tachycardic. Vitals are stable. HEENT: Pale. Jaundice noted. Chest is clear. Heart sounds are regular. Belly is soft with ascites. Urine is concentrated. LABORATORY DATA: CBC: White cell count 10, hematocrit 29.6, platelets 189,000. ASSESSMENT AND PLAN: 1. The patient has a paracentesis done, removed 2.6 L of fluid. 2. Impending delirium tremens (DTs). On Librium. Continue banana bag. Continue on vitamin K. Continue on lactulose and Xifaxan. 3. Continue IV antibiotics for urinary tract infection (UTI). Discussed the plan of care with the patient's , planning to discharge to the rehabilitation once she is medically stable. LEVEL OF DOCUMENTATION: 25 minutes. cc: MD Phill Montoya MD
[2018-07-05] MEDS: ZOFRAN IV PRN (20:25)
[2018-07-05 21:42] LABS: ALB/GLOB RATIO 1.2; ALBUMIN 3.2 g/dL (3.5-5.0); CALCIUM 8.8 mg/dL (8.8-10.2); CREATININE 1.7 mg/dL (0.5-0.9); POTASSIUM 4.2 mmol/L (3.5-5.1); TOTAL BILIRUBIN 8.96 mg/dL (0.20-1.00); TOTAL PROTEIN 5.8 g/dL (6.3-8.3)
[2018-07-06 07:44] LABS: BASO# 0.12 X1000 (0.0-0.2); BASO% 1.2 % (0.0-0.8); EOS# 0.24 X1000 (0.0-0.7); EOS% 2.5 % (0.0-10.0); HEMATOCRIT 30.6 % (37.0-47.0); HEMOGLOBIN 9.8 g/dL (12.0-16.0); IMM GRAN# 0.03 X1000 (0.0-0.04); IMM GRAN% 0.3 % (0.0-0.5); LYMPH# 1.14 X1000 (1.2-3.4); LYMPH% 11.7 % (20.5-51.1); MCH 31.5 PG (27-31); MCV 98.4 FL (81-99); MONO# 0.73 X1000 (0.11-0.59); MONO% 7.5 % (1.7-9.3); MPV 10.3 FL (7.4-10.4); NEUT# 7.49 X1000 (1.4-6.5); NEUT% 76.8 % (42.2-75.2); PLT 196 X1000 (130-400); RBC 3.11 XMIL (4.2-5.4); RDW 21.2 % (11.5-14.5); WBC 9.75 X1000 (4.8-10.8)
[2018-07-06] MEDS: LACTULOSE PO SCH ×2 (08:13→20:09)
[2018-07-06] MEDS: ICAR-C PO SCH (08:13)
[2018-07-06] MEDS: TRENTAL PO SCH ×3 (08:13→20:09)
[2018-07-06] MEDS: CENTRUM SILVER PO SCH (08:13)
[2018-07-06] MEDS: PROTONIX IV SCH ×2 (08:13→20:09)
[2018-07-06] MEDS: LIBRIUM PO SCH ×3 (08:13→16:29)
[2018-07-06] MEDS: XIFAXAN PO SCH ×2 (08:13→20:09)
--- NOTE | 2018-07-06 13:49 | PROGRESS NOTE ---
DATE: 07/06/2018 SUBJECTIVE: The patient had paracentesis yesterday, still confused, basically withdrawn. OBJECTIVE: Vitals: Temperature is 98 degrees, pulse is 85, blood pressure 107/45. HEENT: Within normal limits. Neck: Supple. Jaundice noted. Chest: Clear. Heart: Heart sounds are regular. Abdomen: Soft. Ascites noted. Neurologic: No asterixis. LABS: CBC: White cell count 9.7, hematocrit 30, platelets 196,000. Ammonia level 65. ASSESSMENT AND PLAN: Cirrhosis due to alcohol with ascites. We will start on nadolol once detoxed. Status post paracentesis x2. Continue lactulose, Xifaxan IV, vitamin K, and multivitamin bag, and IV Protonix. Continue to monitor DTs and fluid restrictions, and daily weights. We will check the labs tomorrow LEVEL OF DOCUMENTATION: 25 minutes. cc: MD Phill Montoya MD
--- NOTE | 2018-07-06 15:07 | GASTROENTEROLOGY PROGRESS NOTE ---
DATE: 07/06/2018 SUBJECTIVE: Resting in bed. She is more awake and answers simple questions. Her ammonia is trending down. She denies any fevers, rigors or chills. She is currently on room air. She has been afebrile last 24 hours. She continues to have poor oral intake. She is having liquid stools. Vitals: Temperature 97.8 degrees, pulse of 94, respiratory 16, blood pressure 190/42, saturating 94% room air, body weight of 130 pounds 7 ounces, BMI 23.9 kg. Mrs. Roy lying in bed in no acute distress. HEENT: Pale conjunctivae. Icteric sclerae. Neck: Supple. Abdomen: Is distended, positive ascites, mild discomfort in periumbilical region; no rebound. Extremities: No cyanosis, clubbing. Neuro: She was awake, alert and answers questions. LABS: Hemoglobin and hematocrit is 9.8 and 30.6, white count of 9.75, platelet count 196,000, ammonia of 65, sodium 141, potassium 4.2, chloride 112, bicarb of 14, INR 15, BUN of 23, creatinine 1.7, glucose 102, calcium is 8.8, total bilirubin is 8.96, AST 77, ALT 23, alkaline phosphatase 298, total protein 5.8, albumin 3.2. Peritoneal fluid culture is showing no growth. Both anaerobic cultures also negative. Blood culture times negative after 5 days from 06/29/2018, urine culture showing Enterobacter cloacae complex. IMPRESSION AND PLAN: 1. Decompensated alcoholic cirrhosis, will continue to monitor liver enzymes closely. 2. Ascites, she has been through paracentesis twice, will keep her on low sodium diet. We will check her CMP tomorrow and then decide about starting her on Lasix and Aldactone if her creatinine is improved . 3. Hepatic encephalopathy. She is on Xifaxan 550 mg p.o. b.i.d. and lactulose 30 mL p.o. b.i.d., will hold laxatives like lactulose if she has more than 3 to 4 bowel movements 24 hours. 4. Alcoholic hepatitis. She is on pentoxifylline 400 mg p.o. t.i.d. 5. Urinary tract infection with Enterobacter cloacae, she is on antibiotics. 6. Anemia, continue to watch for now. She is on iron treatment. 7. Gastrointestinal prophylaxis PPIs. 8. Malnutrition. We encouraged to start eating orally. She is on heart healthy diet. 9. Watch for withdrawal, she is on Librium. 10. Bowel regimen with lactulose. 11. Coagulopathy secondary to cirrhosis watch for now. She has received vitamin K. 12. Above plan discussed the patient, the nursing staff and all questions answered, please call us with any further questions. cc: MD Phill Acuña MD Dr. Reddy MTDD
[2018-07-06] MEDS: ROCEPHIN 1 GM in NS 50 ML IV SCH (15:09)
[2018-07-06] MEDS: ULTRAM PO PRN (20:08)
[2018-07-06] MEDS: M.V.I.-12 10 ML, FOLIC ACID 1 MG, MAGNESIUM SULFATE 1 GM, THIAMINE 100 MG in NS 1,000 ML IV SCH (20:08)
[2018-07-06] MEDS: SODIUM CHLORIDE 0.9% INJ SCH (20:09)
[2018-07-07] MEDS: ULTRAM PO PRN ×2 (02:17→20:38)
[2018-07-07 07:13] LABS: BASO# 0.11 X1000 (0.0-0.2); BASO% 0.9 % (0.0-0.8); EOS# 0.27 X1000 (0.0-0.7); EOS% 2.2 % (0.0-10.0); HEMATOCRIT 29.6 % (37.0-47.0); HEMOGLOBIN 9.7 g/dL (12.0-16.0); IMM GRAN# 0.04 X1000 (0.0-0.04); IMM GRAN% 0.3 % (0.0-0.5); LYMPH# 1.14 X1000 (1.2-3.4); LYMPH% 9.4 % (20.5-51.1); MCH 32.2 PG (27-31); MCHC 32.8 g/dL (33-37); MCV 98.3 FL (81-99); MONO# 0.73 X1000 (0.11-0.59); MPV 9.9 FL (7.4-10.4); NEUT# 9.83 X1000 (1.4-6.5); NEUT% 81.2 % (42.2-75.2); PLT 189 X1000 (130-400); RBC 3.01 XMIL (4.2-5.4); RDW 20.7 % (11.5-14.5); WBC 12.12 X1000 (4.8-10.8)
[2018-07-07 07:29] LABS: INR 1.46; PROTIME 18.9 Seconds (11.0-16.0)
[2018-07-07 08:16] LABS: ALB/GLOB RATIO 1.1; ALBUMIN 3.1 g/dL (3.5-5.0); CALCIUM 8.8 mg/dL (8.8-10.2); CREATININE 1.7 mg/dL (0.5-0.9); POTASSIUM 3.6 mmol/L (3.5-5.1); TOTAL BILIRUBIN 9.47 mg/dL (0.20-1.00); TOTAL PROTEIN 5.8 g/dL (6.3-8.3)
[2018-07-07] MEDS: PROTONIX IV SCH ×2 (10:17→20:37)
[2018-07-07] MEDS: LACTULOSE PO SCH ×2 (10:17→20:37)
[2018-07-07] MEDS: ICAR-C PO SCH (10:17)
[2018-07-07] MEDS: TRENTAL PO SCH ×3 (10:17→20:38)
[2018-07-07] MEDS: XIFAXAN PO SCH ×2 (10:17→20:38)
[2018-07-07] MEDS: VITAMIN K 10 MG in NS 50 ML IV SCH (10:17)
[2018-07-07] MEDS: CENTRUM SILVER PO SCH (10:17)
[2018-07-07] MEDS: LIBRIUM PO SCH ×3 (10:17→18:12)
--- NOTE | 2018-07-07 13:30 | PROGRESS NOTE ---
DATE: 07/07/2018 SUBJECTIVE: The patient is not doing very well. She is getting a banana bag once a day for 5 days. Belly got distended. She has a lot of diarrhea in the diapers. She is not eating well. Lobato was placed. WEIGHT: 136 pounds. OBJECTIVE: Vitals: Temperature is 97 degrees, pulse 96, blood pressure 114/ 41. HEENT: Pale and jaundiced. Chest: Clear. Heart: Sounds are regular. Abdomen: Belly is soft, distended. Extremities: No peripheral edema. LABORATORIES: CBC: White cell count 12, hematocrit 29.6, platelet 189,000. INR 1.46. SMA 12: Sodium 140, potassium 3.6, BUN 24, creatinine 0.7. Glucose 114. Bilirubin is going up. ASSESSMENT AND PLAN: 1. Cirrhosis of liver due to alcohol with portal hypertension. Elevated ammonia, PT/INR. Discussed with Dr. Almonte. Discontinue banana bag. 2. Scheduled for paracentesis tomorrow. 3. Impending delirium tremens on Librium. 4. Continue on IV vitamin K. 5. Urinary tract infection on ceftriaxone. Continue daily weights and fluid restrictions. LEVEL OF DOCUMENTATION: 25 minutes. Poor prognosis. cc: MD Phill Montoya MD
[2018-07-07] MEDS: ROCEPHIN 1 GM in NS 50 ML IV SCH (14:52)
--- NOTE | 2018-07-07 17:57 | GASTROENTEROLOGY PROGRESS NOTE ---
DATE: 07/07/2018 SUBJECTIVE: Patient is resting in bed. She is sleepy. She was able to wake up and answer simple questions. She denies any fevers, rigors, or chills. She complains of abdominal distention. She has poor oral intake. OBJECTIVE: Vital signs: Temperature 97.5, pulse rate of 92, respiratory rate of 20, blood pressure 122/58, saturating 97% on room air. Body weight of 136 pounds. General appearance: Moderately built, moderately nourished, lying in bed, currently a little sleepy. HEENT: Positive pallor. Positive icterus. Neck: Supple. Abdomen: Distended. Positive ascites. No guarding. Extremities: No cyanosis, clubbing. Neurologic: She was sleepy. Was able to wake up and answer some simple questions. She has a history of intermittent confusion. LABS: Hemoglobin and hematocrit are 9.9 and 29.6, white count of 12.1, platelet count of 189,000, MCV of 98.3. INR of 1.46, PT of 18.9. Sodium 140, potassium 3.6, chloride 113, bicarb of 49, with 13, BUN of 24, creatinine 1.7, glucose of 114, calcium is 8.8, total bilirubin is 9.47, AST 75, ALT 25, alkaline phosphatase 324, total protein 5.8, Ammonia of 65. Her peritoneal fluid showed no growth. Her urine culture showed Enterobacter cloacae complex on 06/29/2018. IMPRESSION AND PLAN: 1. Decompensated alcoholic liver cirrhosis. We will continue to follow liver enzymes and daily labs. We will continue current management. 2. Ascites. We will discontinue the fluids. She will be put on fluid restriction. We will arrange for paracentesis tomorrow. She will continue on low-sodium diet. 3. Coagulopathy. Will give her vitamin K. 4. Hepatic encephalopathy. She will continue Xifaxan 550 mg p.o. b.i.d. and lactulose 30 ml twice daily. We will hold lactulose for more than 3 to 4 bowel movements in 24 hours. 5. Alcoholic hepatitis. She is on pentoxifylline 400 mg p.o. t.i.d. 6. Urinary tract infection with Enterobacter cloacae. She is on antibiotics. 7. Anemia. Continue to watch for now. She is on iron replacement. 8. Gastrointestinal prophylaxis. PPIs. 9. Malnutrition. Will start her on Ensure twice daily. 10. Watch for withdrawal. She is on Librium. We may have to adjust the dose of Librium if she continues to be sleepy and drowsy. 11. We will follow along. The above plan was discussed with the patient and the nursing staff, also Dr. Alvarez. Please call us with any further questions. cc: MD Phill Acuña MD Dr. Reddy MTDD
[2018-07-07] MEDS: SODIUM CHLORIDE 0.9% INJ SCH (20:37)
[2018-07-08 07:13] LABS: POTASSIUM 3.8 mmol/L (3.5-5.1)
[2018-07-08 07:17] LABS: ALB/GLOB RATIO 1.4; ALBUMIN 3.6 g/dL (3.5-5.0); CALCIUM 9.6 mg/dL (8.8-10.2); TOTAL BILIRUBIN 9.67 mg/dL (0.20-1.00); TOTAL PROTEIN 6.1 g/dL (6.3-8.3)
[2018-07-08] MEDS: PROTONIX IV SCH ×2 (08:20→22:45)
[2018-07-08] MEDS: SODIUM CHLORIDE 0.9% INJ SCH (08:20)
[2018-07-08] MEDS: VITAMIN K 10 MG in NS 50 ML IV SCH (08:20)
[2018-07-08] MEDS: TRENTAL PO SCH ×2 (08:21→16:08)
[2018-07-08] MEDS: XIFAXAN PO SCH (08:21)
[2018-07-08] MEDS: LACTULOSE PO SCH ×3 (08:21→16:39)
[2018-07-08] MEDS: ICAR-C PO SCH (08:22)
[2018-07-08] MEDS: CENTRUM SILVER PO SCH (08:22)
[2018-07-08 08:25] LABS: INR 1.51; PROTIME 19.4 Seconds (11.0-16.0)
[2018-07-08 08:26] LABS: PTT 39.9 Seconds (22.3-41.8)
[2018-07-08] MEDS ORDERED: LACTULOSE PO ONE (08:45)
[2018-07-08] MEDS ORDERED: ALBUMIN 25% IV ONE (10:45)
[2018-07-08] MEDS: CLINIMIX E 4.25%-5% SOLUTION 1,000 ML IV SCH (12:11)
--- NOTE | 2018-07-08 12:37 | Diag Imaging Result Doc PS360 ---
EXAM: US ABD PARACENTESIS W S/I HISTORY: paracentesis TECHNIQUE: Ultrasound-guided paracentesis COMPARISON: None. FINDINGS: The patient was unable to give consent. The patient's gave consent. Primary risks include bleeding, infection, bowel injury, and liver injury. The permit was signed by the . Ultrasound was used to localize the largest fluid collection in the right abdomen. This area was cleaned and draped in the normal fashion. Lidocaine was used as a local anesthetic. Needle and catheter were advanced into the fluid collection on the first attempt without difficulty. The needle was withdrawn. The catheter was hooked to suction. Approximately 3 L of thin yellowish fluid were withdrawn without difficulty. This was sent to the laboratory for analysis. The catheter was then withdrawn. No immediate postprocedural complications. IMPRESSION: Successful ultrasound-guided paracentesis. Electronically signed by Ozzy Washington 07/08/2018 12:35 PM
--- NOTE | 2018-07-08 14:17 | GASTROENTEROLOGY PROGRESS NOTE ---
DATE: 07/08/2018 SUBJECTIVE: The patient is currently sleepy. She was drowsy this morning. The nursing staff called me and Dr. Alvarez. Rechecked her ammonia. Ammonia went up to 112. She had an NG tube inserted and a dose of lactulose was given. She has abdominal distention. We have stopped her fluids. We have scheduled her for a paracentesis today. PHYSICAL EXAMINATION: Vital Signs: Temperature are 97.6, pulse rate of 107, respiratory rate of 26, blood pressure 135/51, saturating 96% on room air. Body weight of 140 pounds. BMI 25.6 kg/m2. General Appearance: Thinly-built, lying in bed, in no acute distress. HEENT: Pale conjunctivae. Icteric sclerae. NG tube in place. Neck: Supple. Abdomen: Distended. Positive ascites. No guarding. Extremities: No cyanosis, clubbing. Neurologic: She opens her eyes to commands but does not answer any questions. She has a history of intermittent confusion. LABS: Her INR is 1.5, PT of 19.4, PTT of 39.9. Sodium of 130, potassium 3.8, chloride of 111, bicarb of 11, anion gap of 16, BUN of 28, creatinine of 2, glucose of 131, calcium is 9.6. Bilirubin 9.67, AST 111, ALT 31, alkaline phosphatase 370, total protein is 6, albumin of 3.6, ammonia 112. Peritoneal fluid showed no growth and urine culture had showed Enterococcal cloacae complex. IMPRESSION AND PLAN: 1. Decompensated alcoholic liver cirrhosis. She is showing a gradual decline clinically. Her creatinine is going up. The jaundice is getting worse and her mental status is getting worse. We will continue with supportive care. She has poor oral intake. We will give her some gentle fluids in the form of albumin 50 g once daily for 3 days. That will help her with her anasarca and ascites. 2. Ascites is worsening. She is scheduled for a paracentesis today. 3. Coagulopathy. We are giving her vitamin K. INR is 1.51. 4. Alcoholic hepatitis and liver cirrhosis. She is on pentoxifylline 4 mg by mouth three times a day. 5. Urinary tract infection. She is on ceftriaxone 1 g every day. 6. Gastrointestinal prophylaxis with proton pump inhibitors. 7. Nausea. She is on intravenous Zofran. 8. Hepatic encephalopathy. We will start her on lactulose 30 mL by mouth three times a day. Hold for more than 3 bowel movements in 24 hours. We will keep her on Xifaxan 550 mg by mouth twice a day. 9. Anemia. Continue iron C twice a day and multivitamin once daily. 10. Prognosis. She has decompensated alcoholic liver cirrhosis and is slowly declining. We have discussed the situation with the patient's nurse. We will follow along. Please call us with any further questions. cc: MD Phill Acuña MD Jagan Reddy, MD
[2018-07-08 14:31] LABS: BODY FLUID SOURCE PERITONEAL FLUID
[2018-07-08 14:35] LABS: ALBUMIN BODY FLUID 0.6 g/dL; AMYLASE BODY FLUID 7 U/L
[2018-07-08] MEDS: ROCEPHIN 1 GM in NS 50 ML IV SCH (14:37)
[2018-07-08 15:21] LABS: BODY FLUID SOURCE PERITONEAL FLUID; WBC BF 40 /cumm
[2018-07-08 15:22] LABS: MONOS 79 %; POLYS 21 %
--- NOTE | 2018-07-08 20:22 | PROGRESS NOTE ---
DATE: 07/08/2018 SUBJECTIVE: Level 3 documentation. A 62-year-old white female. Has been doing very poorly. She is obtunded. She is not eating. Lobato was placed. Abdomen got distended. Jaundice is increasing. REVIEW OF SYSTEMS: None reported. EXAM: Vital Signs: Temp is 97, tachycardic, blood pressure is stable. Jaundice is more daily awake. NG tube was placed. Chest: Bilateral air entry. Tachycardic. Abdomen: Belly is soft, very distended. Extremities: No peripheral edema. INVESTIGATIONS: PT 19, INR 1.5. CMP: BUN 38, creatinine 1.0. Jaundice level is creeping up as well as LFTs. ASSESSMENT AND PLAN: 1. Obtundation due to metabolic encephalopathy due to decompensated cirrhosis of liver. 2. Ammonia encephalopathy. 3. Ascites. 4. Acute kidney injury. UTI. 5. Prognosis is poor. 6. Plan of care is NG tube and the lactulose through the NG tube. 7. Abdominal paracentesis as planned today. 8. Advanced directives. Discussed with juancho Osborn. He has been made DNR and continue present treatment. LEVEL OF COORDINATION: 35 minutes. cc: MD Phill Montoya MD MTDD
[2018-07-09] MEDS: TRENTAL PO SCH (00:59)
[2018-07-09] MEDS: XIFAXAN PO SCH (01:00)
[2018-07-09] MEDS: PROTONIX IV SCH ×2 (08:54→22:35)
[2018-07-09] MEDS: SODIUM CHLORIDE 0.9% INJ SCH ×2 (08:54→22:35)
[2018-07-09] MEDS: VITAMIN K 10 MG in NS 50 ML IV SCH (09:00)
[2018-07-09] MEDS ORDERED: ATROPINE 1 % OPHTH SOLN SL PRN (09:39)
[2018-07-09] MEDS ORDERED: MISC. PHARMACY COMMUNICATION SCH (10:00)
[2018-07-09] MEDS: CLINIMIX E 4.25%-5% SOLUTION 1,000 ML IV SCH (10:45)
[2018-07-09 10:50] LABS: BASO# 0.09 X1000 (0.0-0.2); BASO% 0.6 % (0.0-0.8); EOS# 0.32 X1000 (0.0-0.7); EOS% 2.3 % (0.0-10.0); HEMATOCRIT 29.5 % (37.0-47.0); HEMOGLOBIN 9.8 g/dL (12.0-16.0); IMM GRAN# 0.07 X1000 (0.0-0.04); IMM GRAN% 0.5 % (0.0-0.5); LYMPH% 10.1 % (20.5-51.1); MCH 32.3 PG (27-31); MCHC 33.2 g/dL (33-37); MCV 97.4 FL (81-99); MONO# 0.94 X1000 (0.11-0.59); MONO% 6.8 % (1.7-9.3); MPV 9.8 FL (7.4-10.4); NEUT# 11.09 X1000 (1.4-6.5); NEUT% 79.7 % (42.2-75.2); PLT 227 X1000 (130-400); RBC 3.03 XMIL (4.2-5.4); RDW 21.4 % (11.5-14.5); WBC 13.91 X1000 (4.8-10.8)
--- NOTE | 2018-07-09 10:54 | Diag Imaging Result Doc PS360 ---
EXAM: CT HEAD W/O CONTRAST HISTORY: AMS TECHNIQUE: CT head without contrast COMPARISON: None. FINDINGS: No parenchymal hemorrhage. No epidural or subdural hematoma. No subarachnoid hemorrhage. Minimal chronic microvascular changes. No mass identified on this noncontrasted exam. No hydrocephalus. No sinus opacification. IMPRESSION: No hemorrhage. Negative brain CT without contrast. This exam was performed using automated exposure control, adjustment of mA or kV according to patient size, and/or use of iterative reconstruction technique. Electronically signed by Ozzy Washington 07/09/2018 10:51 AM
--- NOTE | 2018-07-09 10:58 | PROVIDER PROGRESS NOTE ---
Progress Note SUBJECTIVE: Patient has continued to decline overnight. She had emesis of lactulose given through NGT and has been minimally responsive. She is now DNR per discussion with Dr. Alvarez and . OBJECTIVE: Last Vital Signs Temp 98.5 F 07/09/18 07:22 Pulse 110 H 07/09/18 07:22 Resp 24 07/09/18 07:22 BP 145/49 07/09/18 07:22 Pulse Ox 93 L 07/09/18 07:22 Height 5 ft 2 in Weight 133 lb 3 oz General: obtunded HEENT: Icteric. does not track with eyes Neck: Supple. bounding EJ veins Cardiac: Tachycardic, regular, no murmurs Lungs: Increased WOB, coarse BS bilaterally, no wheezing Abdomen: distended, ascites present, no guarding Extremities: No clubbing, cyanosis or edema. Skin: Scattered spider angiomata on her chest. Jaundice, WWP Neurologic: obtunded, minimally responsive to noxious stimuli, no clonus 07/09/18 10:45 WBC 13.91 H Hgb 9.8 L Plt Count 227 EXAM: US ABD PARACENTESIS W S/I 07/08/2018 HISTORY: paracentesis TECHNIQUE: Ultrasound-guided paracentesis COMPARISON: None. FINDINGS: The patient was unable to give consent. The patient's gave consent. Primary risks include bleeding, infection, bowel injury, and liver injury. The permit was signed by the . Ultrasound was used to localize the largest fluid collection in the right abdomen. This area was cleaned and draped in the normal fashion. Lidocaine was used as a local anesthetic. Needle and catheter were advanced into the fluid collection on the first attempt without difficulty. The needle was withdrawn. The catheter was hooked to suction. Approximately 3 L of thin yellowish fluid were withdrawn without difficulty. This was sent to the laboratory for analysis. The catheter was then withdrawn. No immediate postprocedural complications. IMPRESSION: Successful ultrasound-guided paracentesis. HCT 07/09 IMPRESSION: No hemorrhage. Negative brain CT without contrast. A/P: Ms. Jayla Roy is a 62-year-old woman who presents with worsening decompensated alcohol cirrhosis with ascites and alcoholic hepatitis. She has continued to decline with AMS. LVP yesterday was negative for SBP. HCT ordered this AM was negative for acute intracranial process. Unclear etiology of AMS. Likely hepatic encephalopathy. Overall prognosis poor. #AMS: - will give lactulose AL QID - avoid sedating meds, correct lytes - recommend palliative care consult #Leukocytosis: worsening over last couple of days despite CTX; no SBP on paracentesis; ?aspiration pneumonia - will obtain portable CXR - consider broadening abx #Decompensated ETOH cirrhosis: CP-C - Ascites: s/p LVPx3 without SBP; holding diuretics in setting of SCAR - EV: patient had EGD without varices within the last year; no overt bleeding - PSE: AMS: will start AL lactulose - HCC: imaging negative for hepatoma, repeat US every 6 months - OLT: not a candidate given recent ETOH use #Alcoholic hepatitis: on trental TID, continue for total of 28 days; continue thiamine, folate, MVI #UTI: Enterbacter cloacoe; on CTX #Anemia: hgb stable #Severe protein calorie malnutrition: nutrition following; apprec recs #SCAR: stable; Cr; renally dose meds #Coagulopathy: 2/2 to cirrhosis Will follow with you.
[2018-07-09 11:10] LABS: INR 1.47
--- NOTE | 2018-07-09 11:35 | Diag Imaging Result Doc PS360 ---
EXAM: CHEST-PORTABLE HISTORY: leukocytosis r/o pneumonia TECHNIQUE: Portable chest single view COMPARISON: 06/29/2018 FINDINGS: Poor inspiratory effort. There is a nasogastric tube overlying the esophagus and stomach. There are mild increased interstitial markings in both lungs. No consolidation. No pleural effusions identified. IMPRESSION: Mild increased markings believed the mild pulmonary edema Electronically signed by Ozzy Washington 07/09/2018 11:32 AM
[2018-07-09 12:16] LABS: ALB/GLOB RATIO 1.3; ALBUMIN 3.2 g/dL (3.5-5.0); CALCIUM 9.5 mg/dL (8.8-10.2); CREATININE 2.4 mg/dL (0.5-0.9); POTASSIUM 3.6 mmol/L (3.5-5.1); TOTAL BILIRUBIN 7.39 mg/dL (0.20-1.00); TOTAL PROTEIN 5.7 g/dL (6.3-8.3)
[2018-07-09] MEDS: NON-FORMULARY MED PR SCH ×3 (15:34→22:34)
[2018-07-09] MEDS: ROCEPHIN 1 GM in NS 50 ML IV SCH (15:37)
--- NOTE | 2018-07-09 21:10 | PROGRESS NOTE ---
DATE: 07/09/2018 SUBJECTIVE: The patient is in a moribund state, obtunded. No improvement despite aggressive treatment. PHYSICAL EXAMINATION: Vital Signs: Tachycardic. Temperature is 98 degrees. Hemodynamics are stable. Room air 94%. HEENT: Obtunded, jaundice. Chest: Bilateral air entry. Heart: Heart sounds are regular. Abdomen: Belly is soft and distended on response. INVESTIGATIONS: CBC: White cell count 13, hematocrit 29.5, platelets 227,000. SMA-7: BUN 45, creatinine 2.1. LFTs still high. Urine cultures: Enterobacter. Chest x-ray, marked with increased markings, elevation of left hemidiaphragm. CT head negative. ASSESSMENT AND PLAN: Altered mental status, completely obtunded due to ammonia encephalopathy, underlying cirrhosis of liver and ascites, portal hypertension, unable to improve. Progressively worsening liver failure, renal failure and poor prognosis. We will discontinue the blood workup. Continue on NG tube and continue on IV Protonix and IV ceftriaxone for the time being. Living will, DNR. Waiting for demise. Family is agreeable with the plan of care and followup. LEVEL OF DOCUMENTATION: 25 minutes. cc: MD Phill Montoya MD
[2018-07-10] MEDS: SODIUM CHLORIDE 0.9% INJ SCH (08:13)
[2018-07-10] MEDS: PROTONIX IV SCH (08:13)
--- NOTE | 2018-07-10 10:09 | PROVIDER PROGRESS NOTE ---
Progress Note SUBJECTIVE: No acute overnight events. Patient remains obtunded. Per RN, patient has not been receiving rectal lactulose. Spoke with Dr. Alvarez this AM and the decision with patient's yesterday to make patient comfort measures only. OBJECTIVE: Last Vital Signs Temp 99.9 F H 07/10/18 07:50 Pulse 120 H 07/10/18 07:50 Resp 36 H 07/10/18 07:50 BP 150/59 07/10/18 07:50 Pulse Ox 93 L 07/10/18 07:50 Height 5 ft 2 in Weight 134 lb 2 oz General: obtunded HEENT: Icteric. does not track with eyes Neck: Supple. no JVD Cardiac: Tachycardic, regular, no murmurs Lungs: Increased WOB, coarse BS bilaterally, no wheezing Abdomen: distended, tympanic, hypoactive BS, ascites present, no guarding Extremities: No clubbing, cyanosis or edema. Skin: Scattered spider angiomata on her chest. Jaundice, WWP Neurologic: obtunded, nonresponsive to noxious stimuli A/P: Ms. Jayla Roy is a 62-year-old woman who presents with worsening decompensated alcohol cirrhosis with ascites and alcoholic hepatitis. She has continued to decline with worsening mental status despite aggressive therapies and supportive care. She has worsening SCAR and leukocytosis as well. 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 In light of this change, GI will sign off. Thank you for giving us the opportunity to be involved in the care of Ms. Roy. Please call with questions.
[2018-07-10] MEDS: NON-FORMULARY MED PR SCH (10:19)
[2018-07-10] MEDS: CLINIMIX E 4.25%-5% SOLUTION 1,000 ML IV SCH (11:58)
--- NOTE | 2018-07-10 21:32 | PROGRESS NOTE ---
DATE: 07/10/2018 SUBJECTIVE: The patient is doing very poorly. NG tube is out. Abdomen is distended. She is labored in response. Not able to do the lactulose enemas. Family is agreeable for comfort care, and she is also running fever, tachycardic, tachypneic. Hemodynamics were stable. OBJECTIVE: Barely arousable, completely obtunded, severely jaundiced. There is rattling in the chest. Belly is soft, distended. ASSESSMENT AND PLAN: Metabolic encephalopathy due to liver failure or kidney failure. Poor prognosis. Family agreeable for comfort care. Discontinue aggressive management with IV antibiotics and Clinimix and basically oxygen and comfort care. Living will/DNR. Waiting for demise. Discussed with Dr. Coreas, that is the family decided and followup. LEVEL OF DOCUMENTATION: 25 minutes. cc: MD Phill Montoya MD
[2018-07-10] MEDS: MORPHINE IV PRN (23:52)
[2018-07-11] MEDS: MORPHINE IV PRN ×5 (07:25→17:16)
[2018-07-11] MEDS: TYLENOL PR PRN ×2 (07:47→14:05)
[2018-07-11 08:08] VITALS: BP 120/54
[2018-07-11] MEDS: TEARISOL OPH SOLUTION OPH PRN ×3 (09:36→17:19)
--- NOTE | 2018-07-12 05:33 | DISCHARGE SUMMARY ---
ADMISSION DATE: 06/29/2018 DISCHARGE DATE: 07/11/2018 TIME OF : 1749 hours. FINAL DIAGNOSES: 1. Acute cardiopulmonary arrest due to metabolic encephalopathy. 2. Cirrhosis of liver due to alcohol causing liver failure. 3. Intractable ascites. 4. Hepatorenal syndrome. SECONDARY DIAGNOSES: 1. Urinary tract infection with Enterobacter. 2. Ammonia encephalopathy. 3. Coagulopathy due to end-stage liver disease. 4. Anemia. 5. Chronic alcohol use. PROCEDURES: 1. Paracentesis of the abdomen x2. Drained about 7 L of fluid. 2. Transfusion of 1 unit of packed RBC. 3. Insertion of NG tube and Lobato catheter. CONSULTS: Dr. Coreas and Dr. Norris. BRIEF HISTORY: Please see the H and P that was done by Dr. Lei Hicks. In brief, she is a 62-year- old white female who has been battling with alcohol abuse for several years under my care as well as Dr. Norris and Dr. Pritchard, psychologist. She quit and then came back, and drinking on a daily basis. In the past, patient has alcohol hepatitis completely reversed. She continued to drink and was brought in moribund state with jaundice, anemia, kidney failure, and UTI. The patient was obtunded. HOSPITAL COURSE: 1. The patient developed full-blown ascites. Chest x-ray was clear. Bilirubin is 10. PTT was elevated. Ammonia level is 118. GI consult was obtained. A. The patient was treated with fluid restrictions, daily weights. B. Banana bag, Librium for DTs precautions. C. The patient was given vitamin K, lactulose and cefoxitin. 2. Patient also had UTI and started on IV ceftriaxone. 3. She also has a kidney injury due to hepatorenal syndrome and slightly improving. Continues to deteriorate. Lobato was placed. She is not eating well. Patient has ultrasound thoracentesis x2. Despite aggressive treatment with thiamine, folic acid, vitamin K, lactulose, cefoxitin, her liver enzymes continued to deteriorate and increasing. Patient slowly became obtunded, not responding. At that point, NG tube was inserted. I have given [address] head was negative. Unable to do lactulose enema because of the distention of the abdomen. At this juncture, patient condition deteriorated and prognosis was poor. Caregiver, her , made her no code low level 1. Slowly care was transferred to the palliative care consult with discontinue NG tube, discontinue Clinimix, IV antibiotics. The patient was given supportive care and the patient peacefully on 07/11/2018 at 1749 hours. CAUSE OF THE : Due to acute cardiopulmonary arrest due to decompensated liver failure, due to underlying alcoholic cirrhosis with ascites, coagulopathy, ammonia, encephalopathy, and urinary tract infection, and renal failure. Family was notified. cc: MD Phill Montoya MD MTDCathy
== END 2018-07-11 17:49 | disposition expired | DRG 432 ==
LOC: SUPCPDRO → ED 10:22 → 3N 15:00
PROVIDERS: ADMIT Family Medicine; ATTEND Internal Medicine
CPT/HCPCS: 36430; 49083; 70450; 71010; 71020; 71045; 71046; 76705; 80053; 80074; 81001; 82042; 82140; 82150; 82607; 82728; 82746; 82805; 83540; 83550; 83605; 83690; 84157; 85025; 85610; 85730; 86850; 86900; 86901; 86920; 87040; 87070; 87075; 87077; 87088; 87186; 89051; 94760; 99285; A9270; C9113; J0696; J1940; J2175; J2270; J2405; J2550; J3411; J3430; J3475; J7030; J7050; P9016; P9047; S0164